=== PATIENT | female | born 1965 | race African-American/Black ===

== ENCOUNTER → 2020-02-02 | Day surgery (SDC) | payer MEDICARE, OTHER ==
[2020-01-29 10:21] LABS: ANION GAP 15.9 mmol/L (8-16); BLOOD UREA NITROGEN 8 mg/dL (7-26); BUN/CREATININE RATIO 10 (6-25); CALCIUM 8.8 mg/dL (8.4-10.2); CARBON DIOXIDE 21 mmol/L (22-29); CHLORIDE 108 mmol/L (98-107); CREATININE, SERUM 0.79 mg/dL (0.57-1.11); EST GLOMERULAR FILTRATION RATE > 60 ML/MIN (60-); GLUCOSE 197 mg/dL (74-118); POTASSIUM 3.9 mmol/L (3.5-5.1); SODIUM 141 mmol/L (136-145)
[~2020-02-02] MED LIST: ALPRAZOLAM1 MG PO; ASPIRIN81 MG PO; BUPIVACAINE HCL 0.5% INJ 30 ML VIAL INJ ONE; CEFAZOLIN SOD 1 GM/NS 50ML 50 ML IV ONE; CRESTOR10 MG PO; DEXAMETHASONE SOD PHOS INJ 4 MG/ML VIAL ONE; FENTANYL CITRATE/PF 100MCG/2 ML INJ ONE; LIDOCAINE HCL 2% JELLY 5 ML TUBE ONE; LOSARTAN POTAS100 MG PO; METFORMIN HCL500 MG PO; MIDAZOLAM HCL 2 MG/2 ML VIAL ONE; NORCO 10-325 T1 EACH PO; ONDANSETRON HCL INJ 2MG/ML 2ML 2 MG/ML VIAL ONE; PROPOFOL IV EMULSION 10 MG/ML 20 ML VIAL ONE; SEVOFLURANE INHAL SOLN 250 ML PEN BTL ONE; TIZANIDINE HCL4 MG PO
--- NOTE | 2020-02-02 08:15 | Operative Report ---
DATE OF PROCEDURE: 02/02/2020 SURGEON: Tanya Blanco DPM ([place]) PREOPERATIVE DIAGNOSIS: Fibroma, plantar left foot. POSTOPERATIVE DIAGNOSIS: Fibroma, plantar left foot. OPERATIVE PROCEDURE: Excision of fibroma on the plantar aspect of the left foot. PROCEDURE IN DETAIL: The patient was placed on the table in the supine position. The left lower extremity was prepped and draped in the usual manner. A general anesthetic was administered and hemostasis accomplished using a pneumatic cuff at the ankle level at 250 mmHg. A lazy-S type incision was made on the plantar aspect of the left foot, it coursed along the medial band of the plantar fascia. The wound was deepened. Blood vessels were either ligated or retracted. The fibroma was then visualized using a 15 blade. This was carefully dissected away from the plantar aspect. Following the procedure, it was closed with 3-0 nylon, 9 mL of 0.5 Marcaine, 1 mL of Decadron were used as a local anesthetic. At this time, the pneumatic cuff was released and a reflex hyperemia was observed to all digits. The patient tolerated the procedure and anesthesia well and left the OR to recovery in good condition with vital signs stable. Tanya Blanco DPM ([place]) /MODL /[id number]
[2020-02-02 08:20] VITALS: BP 146/76
== END | disposition home or self-care (01) ==
LOC: OR 05:32
PROVIDERS: ATTEND Podiatrist Foot & Ankle Surgery
DX: M72.2 Plantar fascial fibromatosis (principal); I10 Essential (primary) hypertension; E11.9 Type 2 diabetes mellitus without complications; F17.210 Nicotine dependence, cigarettes, uncomplicated; Z01.810 Encounter for preprocedural cardiovascular examination; Z01.812 Encounter for preprocedural laboratory examination; Z11.59 Encounter for screening for other viral diseases; Z79.82 Long term (current) use of aspirin; Z86.73 Personal history of transient ischemic attack (TIA), and cerebral infarction without residual deficits
CPT/HCPCS: 28060; 36415 ×2; 80048; 82948; 88305; 93005; J0690; J1100; J2001; J2250; J2405; J2704; J3010; U0002; 88304